=== PATIENT | male | born 1955 | race Caucasian/White ===

== ENCOUNTER 2022-04-26 06:23 | Day surgery (SDC) | payer OTHER, SELFPAY ==
[2022-04-26 06:46] VITALS: BMI 20.9
[2022-04-26 06:56] VITALS: BP 137/91; PULSE 74; RESP 18; TEMP 37.1; O2SAT 97
[2022-04-26] MEDS: SODIUM CHLORIDE 0.9 % (FLUSH) 10 ML SYRINGE IVF (07:05)
[2022-04-26] MEDS: LACTATED RINGERS 1000 ML 1,000 ML 100 ML IV (07:05)
--- NOTE | 2022-04-26 07:46 | SUR.PREOP ---
Home covid test negative
[2022-04-26] MEDS: CEFAZOLIN 1 GM inj IVP (09:57)
--- NOTE | 2022-04-26 09:57 | P.GSOP_ITS ---
Operative Note Date of procedure: 04/26/22 Pre-op diagnosis: Presumed grade 4 internal hemorrhoid Post-op diagnosis: Same Type of Procedure: 1 quadrant hemorrhoidectomy/excision anal canal polypoid lesion Indications: The patient is a 67-year-old male who has had tissue protruding from his anus for many years. This was previously seen in thought to be a prolapsed internal hemorrhoid. He was going to have surgery and then this was postponed. He came to see me 2 years later and was found to have what appeared to be prolapsed mucosa coming from the anus. Because of his history, and review of his prior chart it seems as though it has been stable and likely benign. Therefore plan was for excision in the OR. Because he had had some bleeding with this, it was felt he should also undergo repeat colonoscopy. Procedure Description: After discussing the risks and benefits of the procedure, the patient signed i nformed consent.? The operative site was identified and the patient was brought to the operating room and placed on the operating table in supine position.? A time-out was performed. The patient was placed in the left lateral decubitus position and then given sedation by anesthesia.? The colonoscopy was performed without incident. Please see the report in Provation. The patient was then placed in prone shannon-knife position. Care was taken to pad his pressure points. The buttocks were taped lateral for exposure and the area prepped and draped in the usual sterile fashion.? A second time-out was then performed. I began with a digital exam. There was tissue again protruding from the anal canal in the anterior midline/to the right of midline. There was no other masses noted on digital exam. Local anesthetic was injected in the skin and subcutaneous tissue around the area and a pudendal block was performed bilaterally. A Schmitz bivalve was then placed into the anus and the tissue was grasped. This was examined and appeared polypoid in nature. It was soft. It was pedunculated. I elected to remove the lesion. Using cautery, the polypoid lesion was removed with care to stay in the submucosal space. This was proximal to the sphincter in the anal canal and care was taken to avoid the sphincter complex. Once the specimen was removed, it was was sent to pathology. The mucosa was then oversewn with 3-0 chromic in a running, locking pattern. Hemostasis appeared excellent at the end of the procedure. ? The patient was then woken and transported to the recovery area in stable condition. ? The patient tolerated the procedure well. Findings: Pedunculated lesion in the anal canal, initially thought to be a grade 4 internal hemorrhoid, however may be a pedunculated polyp. Anesthesia: MAC Surgeon: Julia Chacno MD Estimated blood loss (mL): 10 Additional Specimen Information: Anal canal mass Condition: stable Disposition: same day
[2022-04-26] MEDS: LIDOCAINE 1% 5 ml (pf) 5 ML VIAL 30 ML SUBD (10:14)
[2022-04-26] MEDS: BUPIVACAINE LIPOSOME 133 MG/10 ML INJ INFILTRATI (10:35)
[2022-04-26] MEDS: BUPIVACAINE 0.5% 30 ML INJECTION (10:35)
[2022-04-26 10:49] VITALS: BP 111/81; PULSE 54; RESP 16; TEMP 36.2; O2SAT 99
--- NOTE | 2022-04-26 10:49 | W.ANESCHARGE ---
Anesthesia Charges Start Date/Time Anesthesia Start Date: 04/26/22 Anesthesia Start Time: 08:57 Stop Date/Time Anesthesia Stop Date: 04/26/22 Anesthesia Stop Time: 10:52 Summary Emergency: No
[2022-04-26 11:00] VITALS: BP 116/82; PULSE 57; RESP 16; O2SAT 99
[2022-04-26 11:15] VITALS: BP 118/84; PULSE 53; RESP 16; O2SAT 99
[2022-04-26 11:30] VITALS: BP 135/85; PULSE 57; RESP 16; O2SAT 99
[2022-04-26 11:45] VITALS: BP 129/95; PULSE 75; RESP 16; O2SAT 96
[2022-04-26] MEDS: HYDROCODONE-ACETAMIN 5-325 MG 1 TAB PO (11:47)
--- NOTE | 2022-04-26 12:55 | W.ANESCHARGE ---
Anesthesia Charges Start Date/Time Anesthesia Start Date: 04/26/22 Anesthesia Start Time: 08:57 Stop Date/Time Anesthesia Stop Date: 04/26/22 Anesthesia Stop Time: 10:52 Summary Emergency: No
== END 2022-04-26 12:45 | disposition home or self-care (01) ==
PROVIDERS: PCP Student in an Organized Health Care Education/Training Program; Visit Provider Surgery
PROC: (CPT 46922; principal; 2022-04-26 07:30)
PROC: 0DJD8ZZ Inspection of Lower Intestinal Tract, Via Natural or Artificial Opening Endoscopic (ICD-10-PCS; CPT 45378; 2022-04-26 07:30)
DX: K62.1 Rectal polyp (principal); K92.1 Melena
CPT/HCPCS: 46922; 45378; 00902; 88305; A9270; C9290; J0690; J2250; J2704; J3490; J7120

== ENCOUNTER 2022-07-26 12:46 | Outpatient (CLI) | payer OTHER, SELFPAY ==
--- NOTE | 2022-07-26 13:00 | CRLHL7_ITS ---
For Patients: As a result of the Century Cures Act, medical imaging exams and procedure reports are released immediately into your electronic medical record. You may view this report before your referring provider. If you have questions, please contact your health care provider. INDICATION: Hematuria. TECHNIQUE: CT abdomen and pelvis urogram without and with 78 cc Isovue 370 intravenous contrast. Contrast images were obtained in the delayed phases. COMPARISON: None. FINDINGS: KIDNEYS: The unenhanced images demonstrate no kidney or ureteral stones. The kidneys are normal in caliber and demonstrate normal excretion of IV contrast. No masses. The renal collecting systems and ureters are symmetrical, normal in caliber, and without evidence of mass or filling defect. URINARY BLADDER: Possible small nodular density adjacent to the right UVJ measuring 1 cm, see series 5, image 103. This, however, may represent artifact. The bladder wall is upper limits of normal measuring 2-3 millimeters. No bladder stones. Note is made that the beam hardening artifact from bilateral total hip arthroplasty hardware obscures visualization of the inferior bladder. OTHER: Postop changes to the anterior abdominal wall inferiorly related to prior hernia repair. Degenerative changes lumbar spine, particularly L5-S1. Mild atelectasis/scarring in both lower lobes. Normal liver. Mild thinning of the adrenal glands with low-density changes compatible with benign adenomas. Spleen normal. No pancreatic mass. No biliary obstruction. Gallbladder normal. Increased stool in the colon. No mechanical bowel obstruction. IMPRESSION: 1. Normal kidneys and renal collecting systems. 2. Limited evaluation of the inferior bladder. Possible ill-defined area of soft tissue density at the right posterior lateral bladder wall versus artifact. 3. Increased stool in the colon compatible with constipation. Please note that all CT scans at this facility use dose modulation, iterative reconstruction, and/or weight-based dosing when appropriate to reduce radiation dose to as low as reasonably achievable. Dictated by Ray Meza MD @ 07/27/2022 1:27:01 PM (Electronically Signed)
[2022-07-26 13:25] LABS: Creatinine* 0.6 mg/dL (0.5-1.5); Estimated Glomerular Filt Rate 106 ml/min
== END 2022-07-26 12:47 | disposition home or self-care (01) ==
PROVIDERS: PCP Student in an Organized Health Care Education/Training Program; Visit Provider Physician Assistant
DX: R31.9 Hematuria, unspecified (principal); K59.00 Constipation, unspecified
CPT/HCPCS: 36415; 74178; 82565; Q9967

== ENCOUNTER 2024-07-31 19:03 | Emergency (ER) | payer MEDICARE, BC, SELFPAY ==
--- OUTSIDE RECORDS SUMMARY | 2024-07-31 19:08 | XMS_ITS | Clinical Summary ---
Author Organization [facility] Address [address] [place] [address] Care Team Providers Care Back Up Worker Name Role Phone Unavailable Primary Care Provider Unavailabl e Source Comments Patient records contain information from all sites at [facility]. For routine questions regarding patient records, call [phone] during business hours, M-F 8:00 AM - 5:00 PM Central Time. Record requests for emergency care only can be directed to [phone] at any time.[facility] Allergies No known active allergies Medications cholecalciferol , vitamin D3, 10 mcg/5 mL (400 unit/5 mL) liquid Take 2,000 Units by mouth. Active Lactobac no.41/Bifidobac t no.7 (PROBIOTIC-10 ORAL) Take by mouth. Active PEDIATRIC MULTIVIT 211-IRON ORAL Take 1 tablet by mouth daily. Active saw palmetto 450 mg capsule Take 2 capsules by mouth 2 (two) times a day. Active Active Problems No known active problems Encounters Date Type Department Care Team Description 06/15/2024 Clinical Communication Department of Ophthalmology in [address] [phone] Geoff Escoto M.D. from Last 3 Months Family History Medical History Relation Name Comments Glaucoma Father's Sister Cataracts Sister Macular degeneration Neg Hx Relation Name Status Comments Father's Sister Sister Social History Tobacco Use Types Packs/Day Years Used Date Smoking Tobacco: Never Smokeless Tobacco: Never Tobacco Cessation:Counseling Given: Not Answered Alcohol Use Standard Drinks/Week Comments No 0 (1 standard drink = 0.6 oz pur e alcohol) Nutrition Answer Date Recorded Nutrition: EVOO Fat Source Unknown 05/27 Nutrition: Servings of Fruits/Vegetables per Day Not on file 05/27/2020 Dental Answer Date Recorded Dental: Regular Dentist Unknown 05/27/19 21 Sex and Gender Information Value Date Recorded Sex Assigned at Not on file 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 Gender Identity Not on file Sexual Orientation Not on file Plan of Treatment Health Maintenance Due Date Last Done Comments CT Colonography 1955 Cologuard 1955 Colonoscopy 1955 Colorectal Cancer Screening 1955 FIT 1955 Hepatitis C Screening 1955 Pneumococcal vaccine (50+ years) (1 of 1 - PCV) 2005 Zoster Vaccines (2 of 3) 07/22/2017 05/27/2017 DTaP,Tdap,and Td Vaccines (2 - Td or Tdap) 05/21/2022 05/21/2012 COVID-19 Vaccine (3 - 2023-2 5 season) 2023 07/23/2020, 07/02/2020 Influenza Vaccine (#1) 2024 Depression Screening (Annual PHQ-2) 04/08/2024 Fall Risk Screen (Annual) 04/08/2024 Fasting Glucose for Diabetes Screening 03/15/2025 03/15/2022 IPV Vaccines Aged Out No longer eligi ble based on patient's age to complete this topic Insurance [facility]
--- OUTSIDE RECORDS SUMMARY | 2024-07-31 19:08 | XMS_ITS | Encounter Summary ---
Author Organization [facility] Address [address] [place] [address] Care Team Providers Care Table Top Tile Setter Name Role Phone Unavailable Primary Care Provider Unavailabl e Encounter Details Date Type Department Care Team (Latest Contact Info) Description 06/15/2024 Clinical Communication Department of Ophthalmology in [place], [place] [address] [place] [phone] Geoff Escoto M.D. 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
--- OUTSIDE RECORDS SUMMARY | 2024-07-31 19:08 | XMS_ITS | Clinical Summary ---
Author Organization [facility] Address [address] [place] [id number] Care Team Providers Care Adjuster Name Role Phone Ann Hernandez DO Primary Care Provider Allergies No known active allergies Medications cholecalcifero l, vitamin D3, (VITAMIN D3 ORAL) Take 2,000 units by mouth once daily. Active Lactobacillus rhamnosus GG (PROBIOTIC DIGESTIVE CARE ORAL) Take by mouth. 12 billion CFU. 1 capsule every other day. Active finasteride 5 mg tablet Take 5 mg by mouth once daily in the evening. 01/06/20 24 Active Saw [place] Fruit 450 mg capsule Take 2 Capsules by mouth two times daily. 025 Discontin ued(*Jocelynn ent states no longer taking) pedi multivit 17/iron fumarate (FLINTSTONES PLUS IRON ORAL) Take 1 Tablet by mouth once daily. 025 Discontin ued(*Jocelynn ent states no longer taking) oxyCODONE-acet aminophen (PERCOCET) 5-325 mg per tabletIndicati ons:Bladder tumor Take 1 Tablet by mouth every 6 hours if needed for Pain. Max acetaminophen dose: 4000mg in 24 hrs. 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 05/27/2017 Overview (05/27/2017): On 03/13/17 EKG Non-recurrent bilateral ingu inal hernia without obstruction or gangrene 06/02/2012 Inguinal hernia 05/21/2012 Screen for colon cancer 05/14/2012 Overview (05/14/2012): Colonoscopy 05/2012 normal repeat in 10 years Sialadenitis 05/19/2008 Overview (05/19/2008): Causes airway obstruction in 1983 DJD (degenerative joint disease) of hip 05/19/19 Carpal tunnel syndrome 05/19/2008 Resolved Problems Problem Noted Date Diagnosed Date Resolved Date Atrial fibrillation, unspecified type 07/06/2024 07/06/2024 Encounters Date Type Department Care Team Description 07/09/2024 Telephone [facility] [address] [place] [address] Ann Hernandez DO Results 07/06/2024 9:00 AM CDT Office Visit [address] [place] [address] 07/06/2024 7:40 AM CDT Office Visit [facility] [address] [place] [address] Ann Hernandez DO Medicare ANNUAL (subsequent) Visit (69 year old ) 07/06/2024 Travel from Last 3 Months Immunizations Immunization Administration Dates Next Due COVID-19 vaccine ([employer] 30mcg/0.3mL) P FMAI 07/23/2020,07/02/2020 Td (Age >=7 Years) 03/08/2000 Tdap 05/21/2012 Zoster (Zostavax-ZVL, live) 05/27/2017 Family History Medical History Relation Name Comments Heart Disease Father CHF at 90 Stroke Father at 86 yo Stroke Mother at 86 from 2nd CVA Good Health Sister all 3 are healt hy Relation Name Status Comments Father Mother Sister Social History Tobacco Use Types Packs/Day Years Used Date Smoking Tobacco: Never Smokeless Tobacco: Never Tobacco Cessation:Counseling Given: Yes Alcohol Use Standard Drinks/Week Comments No 0 (1 standard drink = 0.6 oz pur e alcohol) PHQ-2 Answer Date Recorded PHQ-2 TOTAL SCORE 0 07/06/2024 Social Connections Answer Date Recorded Frequency of Communication with Friends and Fami ly 0 10/12/2021 Financial Resource Strain Answer Date R ecorded Difficulty of Paying Living Expenses 3 10/12/2021 Difficulty of Paying Living Expenses Not on file 10/12/2021 Food Insecurity Answer Date Recorded Worried About Running Out of Food in the Last Ye ar 1 10/12/2021 Transportation Needs Answer Date Record ed Lack of Transportation (Medical) 1 10/12/2021 Housing Stability Answer Date Recorded Unable to Pay for Housing in the Last Year 1 10/12/2021 Sex and Gender Information Value Date Recorded Sex Assigned at Not on file 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65 07/06/2024 7:45 AM CDT Plan of Treatment Upcoming Encounters Date Type Department Care Team (Late st Contact Info) Description 09/08/2024 7:15 AM CDT Orders Only [facility] [address] [place] [address] Lab, [facility] Maintenance Due Date Last Done Comments Pneumococcal series for age 50+ (1 of 2 - PCV) 1974 Zoster (shingles) series for age 50+ (2 of 3) 07/22/2017 05/27/2017 Tetanus booster 05/21/2022 05/21/2012, 05/09, 03/08/2000 COVID-19 vaccine series (3 - season) 2023 07/23/2020, 07/02/2020 Influenza Vaccine (Season Ended) 2024 BMI (ht and wt on same day) for age 18+ 07/06/2025 07/06/2024, 09/04/2022, 03/15/2022, Additional history exists Medicare Wellness for age 65+ 07/07/2025 07/06/2024, 03/15/2022 Depression screening for age 12+ 07/09/2025 07/09/2024, 07/06/2024, 05/31/2021, Additional history exists Lipids for age 45-75 07/06/2029 07/06/2024, 03/15/2022, 05/27/2017, Additional history exists RSV vaccine for adults or (1 - 1-dose 75+ series) 2030 Colonoscopy through age 75 04/26/203204/26 (Completed outside of [facility]), 05/14/2012, 05/14/2012, Additional history exists Tdap Completed 05/21/2012 Hepatitis C screening for ag e 18-79 Completed 07/06/2024 Procedures Procedure Name Priority Date/Time Associated Diagnosis Comments ANTI HCV Routine 07/06/2024 8:38 AM CDT Need for hepatitis C screening test LIPID PANEL W REFLEX MEASURED LDL Routine 07/06/2024 8:38 AM CDT Lipid screening BASIC METABOLIC PANEL Routine 07/06/2024 8:38 AM CDT 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 PATH TISSUE EXAM Routine 07/06/2024 8:21 AM CDT Skin lesion EXTENDED HOLTER Routine 07/06/2024 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 LDL-C is now calculated using the Dustin calculation, which is a validated novel method providing better accuracy than the Friedewald equation in the estimation of LDL-C. Claudio BLANCO et al. YOSELIN. 2013;310(19): 1823-8720 (http://education.Wanova/faq/HFG138) CHOL/HDLC RATIO 4.2 <5.0 (calc) [facility] NON HDL CHOLESTEROL 146(H) <130 mg/dL (calc) [facility] Comment: For patients with diabetes plus 1 major ASCVD risk factor, treating to a non-HDL-C goal of <100 mg/dL (LDL-C of <70 mg/dL) is considered a therapeutic option. Blood BLOOD SPECIMEN / Unknown 07/06/2024 8:38 AM CDT 07/06/2024 8:38 AM CDT us Adei Mary DO CHEMISTRY Final Result [employer] [facility] [address] [place] [address], [facility] [address] [place] [address] * ANTI HCV (07/06/2024 8:38 AM CDT) Pathologist [facility] HEPATITIS C ANTIBODY NON-REACTI VE NON-REACT [facility] Comment: HCV antibody was non-reactive. There is no laboratory evidence of HCV infection. In most cases, no further action is required. However, if recent HCV exposure is suspected, a test for HCV RNA (test code 90142) is suggested. For additional information please refer to http://education.Soil IQ/faq/SXG92u1 (This link is being provided for informational/ educational purposes only.) Blood BLOOD SPECIMEN / Unknown 07/06/2024 8:38 AM CDT 07/06/2024 8:38 AM CDT Ann Hernandez DO SEND OUTS Final Result [employer] [facility] [address] [place] [address], [facility] [address] [place] [address] * (ABNORMAL) BASIC METABOLIC PANEL (07/06/2024 8:38 AM CDT) Pathologist [facility] GLUCOSE 96 65 - 99 mg/dL [facility] Comment: Fasting reference interval UREA NITROGEN (BUN) 12 7 - 25 mg/dL [facility] CREATININE 0.66(L) 0.70 - 1.35 mg/dL [facility] EGFR 102 > OR = 60 mL/min/1.7 3m2 [facility] BUN/CREATININE RATIO 18 6 - 22 (calc) [facility] SODIUM 138 135 - 146 mmol/L [facility] POTASSIUM 4.3 3.5 - 5.3 mmol/L [facility] CHLORIDE 101 98 - 110 mmol/L [facility] CARBON DIOXIDE 26 20 - 32 mmol/L [facility] ELECTROLYTE BALANCE 11 7 - 17 mmol/L (calc) [facility] CALCIUM 9.1 8.6 - 10.3 mg/dL [facility] Blood BLOOD SPECIMEN / Unknown 07/06/2024 8:38 AM CDT 07/06/2024 8:38 AM CDT us Ann Hernandez DO CHEMISTRY Final Result [facility] [address] [place] [address], [facility] [address] [place] [address] * PATH TISSUE EXAM (07/06/2024 8:21 AM CDT) Case Report Pathology Report Case: [id number] Authorizing Provider: Ann Hernandez DO Collected: 07/06/2024 0821 Ordering Location: [facility] Received: 07/07/2024 1142 Clinic Pathologist: Ramana Bradley MD Specimen: Neck 07/09/2024 3:01 PM CDT [facility] ENTR[facility] LAB[facility] Final Diagnosis A) SKIN, NECK, BIOPSY: 1. Inflamed verrucous seborrheic keratosis 2. No evidence of malignancy 07/09/2024 3:01 PM CDT [facility] at 1501 CDT Clinical Information Skin lesion on the neck. 07/09/2024 3:01 PM CDT [facility] Gross Description A) Received in formalin, labeled with the patient's name and date of , is a 0.8 x 0.7 cm skin biopsy. There is a 0.7 x 0.4 x 0.3 cm verrucoid george lesion. The specimen is inked orange, trisected and entirely submitted in one cassette. [facility] 07/07/2024 07/09/2024 3:01 PM CDT [facility] Microscopic Description The final diagnosis is based on microscopic examination of appropriate sections of all specimens. A) There is a proliferation of basaloid epidermal cells with hyperkeratosis, no significant atypia, and no invasion. There is associated chronic inflammation. The presence of orange ink is confirmed on tissue sections. 07/09/2024 3:01 PM CDT [facility]-C ENTRAL LABORATORY Additional Information Interpreted at [facility], Central Laboratory - [address], [place] [address] 07/09/2024 3:01 PM CDT [facility] ENTRAL LAB[facility]ORY Other SPECIMEN FROM HEAD AND NECK STRUCTURE / Unknown Non-Blood / Unknown 07/06/2024 8:21 AM CDT 07/07/2024 11:42 AM CDT us Adei Shaqra DO PATHOLOGY/CYTOLOGY Final Result [facility] [address] [place] [address], [place] * EXTENDED HOLTER (07/06/2024) 07/06/2024 Narrative Alessia Panda MD - 07/31/2024 12:00 AM CDT Agree with Findings. Please see scan document for full report. Signed By Alessia Panda MD Procedure Note Alessia Panda MD - 07/31/2024 Agree with Findings. Please see scan document for full report. Signed By Alessia Panda MD us Ann Hernandez DO CARDIAC SERVICES ORD Final Resul t from Last 3 Months Insurance BLUE CROSS [employer]ALEN BLUE MR PB ONLY Advance Directives * Full Code (Latest Code Status on File) Date Activated Date Inactivated Comments 09/20/2022 12:23 PM 09/20/2022 6:18 PM Question Answer Comments Code Status Discussion: Unable to Assess Preferences, Provider to review later Care Teams Adjuster Relationship Specialty Start Date End Date Ann Hernandez DO [address] [place] [address] PCP - General Family Practice 04/05/22
--- OUTSIDE RECORDS SUMMARY | 2024-07-31 19:08 | XMS_ITS | Data Portability ---
Author Organization [facility], [facility] Address [address] [place] [address] Assessment No assessment recorded. Plan of Treatment Reminders Order Date Submit Date Provider Last Modified By Organization Details Last Modified Time Details Appointments ESTABLISH ED 10 2024 02:30P Parminder Marinelli MD Not available Not available Not available Lab urinalysi s, dipstick [email or web address] [place] [address], [facility] [facility], [address], [place], [address], 09/26/2023 11:53:47 urinalysi s, dipstick 2023 024 [facility], [address], [address], [place], [address], 06/25/2023 15:35:34 urinalysi s, dipstick 2022 023 [facility], [address], [address], [place], [address], 08/21/2022 14:31:04 Referral None recorded. Procedures bladder scan (PROC) 2023 024 [facility], [address], [address], [place], [address], 06/25/2023 15:35:29 Surgeries None recorded. Imaging None recorded. Medication Orders Bactrim DS 800 mg-160 mg tablet 2023 024 [email or web address] [id number], [address] [place], [place], [id number], 09/26/2023 11:50:27 finasteri de 5 mg tablet 2022 023 LILLI [facility] #[id number], [address] [place], [place], [id number], 01/03/2023 11:56:43 Patient TargetsNo targets recorded. Patient Instructions Encounter Date Encounter Id Patient Instructions Last Modified By Organization Details Last Modified Time 08/21/2022 [id number] will set up for TUR bladder tumor YECENIA discussed. [email or web address] Not available 08/21/2022 14:53:49 01/03/2023 [id number] will try him on finasteride and plan recheck PSA in 4-6 months. [email or web address] Not available 01/03/2023 11:55:37 06/25/2023 [id number] will start 40 da y bactrim and plan rtc 3 months for office cysto. continue on finasteride. [email or web address] Not available 06/25/2023 15:42:38 09/26/2023 [id number] doing well will need refill on finasteride in December. plan rtc 1 year with PSA. [email or web address] Not available 09/26/2023 12:03:46 Reason for Referral None Reported. Results Created Date Observation Date Name Description Value Unit Range Abnormal Flag Note LastModifiedBy Organization Detail LastModifiedTime 08/22/1908/21/2022 urina lysis , dipst ick pH-Status 7.0 Not Available _ryan [facility] [address], [place], [address], 08/20/2022 17:00:53 08/22/19 23 08/21/2022 urina lysis , dipst ick Blood-Status Trace Not Available [address], [place], [address], 08/20/2022 17:00:53 08/22/19 23 08/21/2022 urina lysis , dipst ick Leuko-Status Modera te Not Available [address], [place], [address], 08/20/2022 17:00:53 06/25/19 24 06/25/2023 bladd er scan (PROC ) Volume (in mL) 99ml Not Available [address], [place], [address], 06/25/2023 15:26:18 06/25/19 24 06/25/2023 urina lysis , dipst ick pH-Status 7.0 Not Available [address], [place], [address], 06/25/2023 15:26:32 06/25/19 24 06/25/2023 urina lysis , dipst ick Blood-Status Small Not Available [address], [place], [address], 06/25/2023 15:26:32 06/25/19 24 06/25/2023 urina lysis , dipst ick Leuko-Status Small Not Available [address], [place], [address], 06/25/2023 15:26:32 09/26/19 24 09/26/2023 urina lysis , dipst ick Sp [place]-Stat us 1.015 Not Available [address], [place], [address], 09/24/2023 16:56:10 09/26/19 24 09/26/2023 urina lysis , dipst ick pH-Status 6.0 Not Available [address], [place], [address], 09/24/2023 16:56:10 09/26/19 24 09/26/2023 urina lysis , dipst ick Protein-Stat us >=9.0 Not Available [address], [place], [address], 09/24/2023 16:56:10 09/26/19 24 09/26/2023 urina lysis , dipst ick Blood-Status Small Not Available [address], [place], [address], 09/24/2023 16:56:10 09/26/19 24 09/26/2023 urina lysis , dipst ick Leuko-Status Small Not Available [address], [place], [address], 09/24/2023 16:56:10 08/18/19 23 07/26/2022 CT, abdom en + pelvi s, w/wo contr ast No observ ation record ed. [email or web address] Not Available 2022 14:44:29 Result Notes None recorded. Problems Name Problem SNOMED Code Status Onset Date Resolution Date Notes Provider Name and Address Organization Details Recorded Time Prostate specific antigen above reference range 172261806 Active 2022 Agustín Marinelli MD [address] [facility],[address] [address], [place], [address], [place] [facility] 3 11:54:59 Chronic cystitis 55147626 Active 2023 Agustín Marinelli MD [address] [facility],[address], [place], [address], [facility] 4 15:42:38 Lower urinary tract symptoms due to benign prostatic hypertrophy 5696424475097 1 Active 2023 Agustín Marinelli MD [address] [facility],[address], [place], [address], [facility] 4 12:02:06 Problem Notes None recorded. Procedures Surgical History Date Name Laterality Status Provider Name and Address Organization Details Recorded Time 09/26/19 24 Bladder Scan completed Navjot Mane [facility] 09/24/2023 16:56:04 06/25/19 24 Bladder Scan completed Que Hwang [facility] 06/25/2023 15:35:31 08/22/19 23 Cystoscopy- male completed Agustín Marinelli MD [address] [place] [address],[address], [place], [address], [facility] 08/21/2022 14:53:10 08/22/19 23 Cipro post Cysto completed Que Hwang [facility] 08/21/2022 14:53:44 04/26/19 23 Colonoscopy completed Nohemy Espinosa [facility] 03/14/2023 16:20:26 total replacement of hip completed Agustín Marinelli MD [address] [place] [address],[address], [place], [address], [facility] 08/21/2022 14:28:48 Carpal tunnel surgery completed Agustín Marinelli MD [address] [place] [address],[address], [place], [address], [facility] 08/21/2022 14:28:55 hemorrhoidectomy completed Agustín Marinelli MD [address] [place] [address],[address], [place], [address], [facility] 08/21/2022 14:29:23 Imaging Results Imaging Date Name Status LastModified by Organiz ation Details LastModified Time 07/26/2022 CT, abdomen + pelvis, w/wo contrast completed [email or web address] Information not available 08/17/2022 14:44:29 Procedure Notes None recorded. Medical Equipment None Reported. Allergies No known drug allergies Medications Name Sig Start Date Stop Date Status Note LastModified by Organization Details LastModified Time clindamyc in HCl 300 mg capsule TAKE 1 CAPSULE FOUR TIMES DAILY UNTIL ALL TAKEN 08/21 completed Not Available Not Available Not Available hydrocodo ne 5 mg-acetam inophen 325 mg tablet TAKE 1 TO 2 TABLETS BY MOUTH EVERY 6 HOURS NEEDED FOR PAIN 08/21 completed Not Available Not Available Not Available ciproflox acin 500 mg tablet 08/21 completed Not Available Not Available Not Available sulfameth oxazole 800 mg-trimet hoprim 160 mg tablet TAKE 1 TABLET BY MOUTH EVERY 12 HOURS FOR 40 DAYS 09/25 completed Not Available Not Available Not Available oxycodone -acetamin ophen 5 mg-325 mg tablet 01/03 completed Not Available Not Available Not Available cephalexi n 500 mg capsule TAKE 1 CAPSULE BY MOUTH TWICE DAILY WITH FOOD, WATER, AND SUPPLEME NT WITH A PROBIOTI C. 01/03 completed Not Available Not Available Not Available finasteri de 5 mg tablet TAKE 1 TABLET BY MOUTH EVERY DAY IN THE EVENING 2024 active Pt will need appt for further refills; last seen 09-26-23 Not Available Not Available Not Available amoxicill in 875 mg-potass ium clavulana te 125 mg tablet TAKE 1 TABLET BY MOUTH TWICE DAILY 01/03 completed Not Available Not Available Not Available GaviLyte- G 236 gram-22.7 4 gram-6.74 gram-5.86 gram oral solution DRINK 2 LITERS THE DAY BEFORE COLONOSC OPY AND 2 LITERS 6 HOURS PRIOR TO APPOINTM ENT 08/21 completed Not Available Not Available Not Available Vitals Date Recorded Body height Body mass index (BMI) Body weight Provider Name and Address Organization Details Last Updated DateTime 08/21/2022 185.42 cm 21.1 kg/m2 00904.78 g Agustín Marinelli MD [address] [place] [address],[address], [address], [place] [facility] 08/21/2022 14:27:45 Date Recorded Body height Provider Name an d Address Organization Details Last Updated DateTime 01/03/2023 185.42 cm Agustín Marinelli MD [address] [place] [address],[address], [address] [place] [address] [facility] 01/03/2023 11:33:45 Date Recorded Body height Body mass index (BMI) Body weight Provider Name and Address Organization Details Last Updated DateTime 06/25/2023 185.42 cm 21.8 kg/m2 97482.74 g Agustín Marinelli MD [address] [place], [place] [address] [place] [address] 06/25/2023 15:22:44 Date Recorded Body height Body mass index (BMI) Body weight Provider Name and Address Organization Details Last Updated DateTime 09/26/2023 185.42 cm 22.4 kg/m2 69523.7 g Agustín Marinelli MD [address] [place] [address] [place] [address] 09/26/2023 11:50:21 Social History Question Answer Notes LastModified by Organizat ion Details LastModified Time Tobacco Smoking Status Never Smoker Agustín Marinelli MD [address] [place] [address], [address] [place] [address] 08/21/2022 14:28:31 What Is Your Level Of Alcohol Consumption? None Information not available 09/26/2023 What Is Your Level Of Caffeine Consumption? Moderate [email or web address] Information not available 08/21/2022 What Was The Date Of Your Most Recent Tobacco Screening? 09/26/2023 Information not available 09/26/2023 Sex: Unknown Functional Status None recorded. Mental Status None recorded. Family History Relationship Description Onset Age of this Age Resolved Age Notes LastModified by Organization Details LastModified Time Mother Family history of Hypertension [email or web address] Not available 14:28:19 Medical History Condition Response Other N High Blood Pressure N Kidney Stones N Depression N Lung Disease N GERD/Acid Reflux N Sexually Transmitted Infection N Cancer N High Cholesterol N Diabetes N Bleeding Disorder N Heart Disease N Immunizations Vaccine Type Date Status Note Provider Nam e and Address Organization Details Recorded Time COVID-19, mRNA, LNP-S, PF, 30 mcg/0.3 mL dose 07/02/2020 saranya pena [facility] 10/18/2022 15:53:44 COVID-19, mRNA, LNP-S, PF, 30 mcg/0.3 mL dose 07/23/2020 completed Vanyosi pena, [facility] 10/18/2022 15:53:45 Tdap 05/21/2012 completed Vanida Jatin becky, [facility] 10/18/2022 15:53:45 zoster live 05/27/2017 completed Vanyosi pena, [facility] 10/18/2022 15:53:45 Past Encounters Encounter ID Performer Location Encounter Start Date Encounter Closed Date Diagnosis/Indication Diagnosis SNOMED-CT Code Diagnosis ICD10 Code Diagnosis Note [id number] Agustín Marinelli MD [address] [place] [address] 08/21/2022 14:15:54 08/25/2022 10:01:28 Blood in urine 46561372 R31.9 Joey hematuria 36328951 5 R31.0 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 26203605 D41.4 Prostate s pecific antigen above reference range 746415285 R97.20 [id number] Agustín Marinelli MD [address] [place] [address] 01/03/2023 11:10:26 01/14/2023 17:24:10 Prostate specific antigen above reference range 776178397 R97.20 [id number] Agustín Marinelli MD [address] [place] [address] 06/25/2023 15:15:42 06/26/2023 09:26:33 Prostate specific antigen above reference range 084442008 R97.20 Chronic cystitis 6169873 2 N30.20 [id number] Agustín Marinelli MD [place] [address] [facility],[address] [place] [address] 09/26/2023 11:32:44 09/27/2023 14:49:08 Chronic cystitis 41201625 N30.20 Prostate s pecific antigen above reference range 800865082 R97.20 Lower urin ludivina tract symptoms due to benign prostatic hypertrophy 7529735443 9101 N40.1 Health Concerns Section Related Observation LastModified by Organization Detai ls LastModified Time None Recorded Concern Status LastModified by Organization Details LastModified Time None Recorded Advance Directives Directive None Recorded Payers Encounter Date Sequence Insurance Name Policy Number Policy George Covered Member ID George Member ID Guarantor Name 08/21/2022 1 [facility] - DUAL ELIGIBLE (MEDICARE REPLACEMENT/ ADVANTAGE - HMO) Harjinder Jeter [id number] Harjinder Jeter 01/03/2023 1 [facility] - DUAL ELIGIBLE (MEDICARE REPLACEMENT/ ADVANTAGE - HMO) Harjinder Jeter [id number] Harjinder Jeter 06/25/2023 1 [employer] [employer] [place] [id number] Harjinder Jeter [id number] Harjinder Jeter 09/26/2023 1 [employer] [employer] [place] [id number] Harjinder Jeter [id number] Harjinder Jeter Notes Date Note Type Note Provider Name and Address Organization Details Recorded Time 08/21/2022 text/html seeing for episodic gross painless hematuria. started about 2-3 years ago but no workup due to covid. had CT urogram done with no stones, but possible polyp in bladder. UA's often show RBC and WBC but cultures always negative. no smoking hx. UA today tr RBC mod leuks. PSA with PCP recently 4.6, was in the 3's last march. amily hx neg for CaProstate. 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 doing OK after that. had PSA done 2 days ago and up to 4.6, was 3.42 last March. no fam hx CaP. 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 PVR 99ml , UA tr RBC and leuks today. PSA was down to 2.74 last week from 4.6 last Fall. voiding OK, passed a small clot a few week back. Agustín Marinelli MD [address] [place] [address],[address], [place], [address], [facility] 06/25/2023 15:43:38 09/26/2023 text/html 68 YOM present f or chronic cystitis and elevated PSA. Finished course of sulfamethoxazole-t rimethoprim abx. taking daily finasteride and voiding OK. PVR 137ml today. UA small bld, small placido, pro 06/25/23 PSA 2.74 Agustín Marinelli MD [address] [facility],[address], [place], [address], [facility] 09/26/2023 12:05:50
--- NOTE | 2024-07-31 19:13 | ED.GENADULT ---
HPI - General Adult General Time Seen by Provider: 19:13 <Jess Giles MD - Last Filed: 07/31/24 21:57> Date Seen: 07/31/24 <Jess Giles MD - Last Filed: 07/31/24 21:57> Chief complaint: Extremity Pain/Injury, Lower <Jess Giles MD - Last Filed: 07/31/24 21:57> Stated complaint: Potential broken Right leg <Jess Giles MD - Last Filed: 07/31/24 21:57> Time Seen by Provider: 07/31/24 19:08 <Jess Giles MD - Last Filed: 07/31/24 21:57> Source: patient and RN notes reviewed <Jess Giles MD - Last Filed: 07/31/24 21:57> Mode of arrival: ambulatory <Jess Giles MD - Last Filed: 07/31/24 21:57> Limitations: no limitations <Jess Giles MD - Last Filed: 07/31/24 21:57> History of Present Illness HPI narrative: This 69-year-old male presented to the ER with the assistance of his neighbors with right leg pain. He was attempting to get in a skid dry kiln loader, believes he just did not grab correctly, he fell, believes his right leg got hung up or caught on the skid dry kiln loader, felt up [place] heard a pop in his thigh area, this is the area it hurts. He has had hip replacements. He denies any numbness or tingling. He did not fall on his head, there was no impact injury. There was no loss of consciousness, no neck or back pain, no difficulty breathing, no chest wall pain, no abdominal pain. He has no sense of numbness or tingling anywhere. His arms and his other left leg were unaffected. He is feeling pain from the right hip into the thigh area. He was able to call neighbors from his cell phone and they brought him to the ER. He cannot bear weight on his right leg due to upper thigh and hip pain. States he cannot lift this leg. <Jess Giles MD - Last Filed: 07/31/24 21:57> Related Data Home medications: Previous Rx's ?Medication ?Instructions ?Recorded amoxicillin 875 mg-potassium 1 tab PO BID #20 tabs 11/15/22 clavulanate 125 mg tablet <Jess Giles MD - Last Filed: 07/31/24 21:57> Allergies/adverse reactions: Allergies Allergy/AdvReac Type Severity Reaction Status Date / Time No Known Drug Allergies Allergy Verified 07/31/24 19:20 <Jess Giles MD - Last Filed: 07/31/24 21:57> Review of Systems Status of ROS: Reports: 6 or more systems reviewed and unremarkable except as noted in History and below <Jess Giles MD - Last Filed: 07/31/24 21:57> PFSH PFS Medical History: Medical History Cat bite ?W55.01XA - Bitten by cat, initial encounter (ICD-10) Bundle branch block, right ?I45.10 - Unspecified right bundle-branch block (ICD-10) Hernia, inguinal ?K40.90 - Unilateral inguinal hernia, without obstruction or gangrene, not specified as recurrent (ICD-10) Carpal tunnel syndrome ?G56.00 - Carpal tunnel syndrome, unspecified upper limb (ICD-10) Degenerative joint disease (DJD) of hip ?M16.9 - Osteoarthritis of hip, unspecified (ICD-10) Sialoadenitis, unspecified ?K11.20 - Sialoadenitis, unspecified (ICD-10) <Jess Giles MD - Last Filed: 07/31/24 21:57> Surgical History: Surgical History S/P total right hip arthroplasty ?Z96.641 - Presence of right artificial hip joint (ICD-10) Status post total hip replacement, left ?Z96.642 - Presence of left artificial hip joint (ICD-10) <Jess Giles MD - Last Filed: 07/31/24 21:57> Social History: Social History Smoking Status: Never smoker How often do you have a drink containing alcohol: never AUDIT-C Alcohol total score: 0 Non-prescribed substance use: denies use Caffeine: Yes (occaisionally) <Jess Giles MD - Last Filed: 07/31/24 21:57> Exam Const: Vital Signs, click to edit/add: Vital Signs - 24 hr 07/31/24 19:15 07/31/24 19:18 Temperature 98.9 F Pulse Rate [Right Pulse Oximeter] 71 Respiratory Rate 16 Blood Pressure [Ri ght Upper Arm] 148/88 H Pulse Oximetry 99 99 Oxygen Delivery Me thod Room Air This patient is alert, interactive, no apparent distress. Pupils equal round reactive, sclera clear, face atraumatic. Able to speak in complete sentences. No tenderness over spine. Neck is supple, no jugular venous distension, no adenopathy. Lungs are clear, good air entry, no wheezing or crackles, no tachypnea, no accessory muscle use. No traumatic change to chest wall. CV regular rate and rhythm, no murmur. Chest wall is nontender. Abdomen is soft, nontender, nondistended, no organomegaly or masses. Does not have pain when I palpate over his right greater trochanter, can gently internal external rotate his right leg on the bed does not seem to be significantly painful. He can straight leg raise his left leg off the bed, ask him to just gently try to do so with his right leg and causes him significant discomfort and effort is discontinued. He has no effusion or pain on palpation of his right knee joint, no pain on palpation down the tibia or fibula, no pain or effusion about the right ankle, foot is nontender, toes are nontender on the right side. Pulses are good, sensation distally is good. His right thigh does not seem to have any significant ecchymosis or swelling at this time, note no leg length discrepancy. Does not complain of pain when I compress his pelvis. <Jess Giles MD - Last Filed: 07/31/24 21:57> Vital Signs, click to edit/add: Vital Signs - 24 hr 04/25/25 19:15 07/31/24 19:18 Temperature 98.9 F Pulse Rate [Right Pulse Oximeter] 71 Respiratory Rate 16 Blood Pressure [Ri ght Upper Arm] 148/88 H Pulse Oximetry 99 99 Oxygen Delivery Me thod Room Air <Joe Regalado DO - Last Filed: 08/01/24 00:56> Vital Signs, click to edit/add: Vital Signs - 24 hr 07/31/24 19:15 07/31/24 19:18 Temperature 98.9 F Pulse Rate [Right Pulse Oximeter] 71 Respiratory Rate 16 Blood Pressure [Ri ght Upper Arm] 148/88 H Pulse Oximetry 99 99 Oxygen Delivery Me thod Room Air <Cheryl Moreland MD - Last Filed: 08/01/24 03:59> Documenting provider has reviewed patient's vital signs: yes <Jess Giles MD - Last Filed: 07/31/24 21:57> Course Course ED Course: Patient has significant discomfort when moving his right leg. I am wondering if there could be some type of muscle tear is I do not see significant swelling. We certainly will get x-ray imaging to rule out underlying fracture. Will look at his pelvis, right hip and femur. It is possible there could be an underlying femur fraction from a torsion type event. We will give him IV fentanyl and Zofran to prevent nausea, will be monitored on pulse oximetry. <Jess Giles MD - Last Filed: 07/31/24 21:57> Reevaluation(s) Time of Reevaluation #1: 21:05 <Jess Giles MD - Last Filed: 07/31/24 21:57> Reevaluation #1: Have reviewed with patient there is no evidence of fracture or dislocation. He has significant pain in mid to upper thigh when we attempt to have him actively lift his leg. When he is doing so, still feels like the quadriceps insertion along the knee is there. He had his hip replacements at [facility]. I will talk to our orthopedics on-call for further recommendations but I am wondering if there could be some hip flexor traumatic rupture. <Jess Giles MD - Last Filed: 07/31/24 21:57> Reevaluation #2: dr. Blayne Sanchez inherited care from outgoing evening provider. Patient with periprosthetic hip fracture, vital signs have been stable. Orthopedic team from our facility is recommending transfer. Was able to get acceptance for patient to transfer to the hospitalist at [facility]. Slight delay in transfer due to EMS availability overnight. Ultimately, patient transferred without complication. <Cheryl Moreland MD - Last Filed: 08/01/24 03:59> Consultations Consultation #1: Have reviewed with Karina Hyde from Orthopedics. She did look at these images, wonders if there is maybe a small crack coming off the lateral view from some of the free absorption area. She recommends that he follow up with Dr. Joe Ceja from [address] [place] [address]. He specializes in revisions. If patient can tolerate and is strong enough for walker, can discharge to home for outpatient follow-up. Have reviewed this with patient. He does not think that he is going to be able to tolerate walking, he states just the weight of the leg was extremely painful. Will have him get a dose of Tylenol, dose of oxycodone and see if he tolerates ambulation with a walker here. If not, he will need to transfer to an organization with [facility] as this is not something we can manage here. <Jess Giles MD - Last Filed: 07/31/24 21:57> Time: 21:12 <Jess Giles MD - Last Filed: 07/31/24 21:57> Vital Signs Vital signs: Initial Vital Signs Temperature 98.9 F 07/31/24 19:15 Temperature Source Temporal Artery Scan 07/31/24 19:15 Pulse Rate 71 07/31/24 19:15 Pulse Rhythm Regular 07/31/24 19:15 Pulse Strength 3+ Normal 07/31/24 19:15 Respiratory Rate 16 07/31/24 19:15 Blood Pressure 148/88 H 07/31/24 19:15 Blood Pressure Mean 108 H 07/31/24 19:15 Blood Pressure Position Supine 07/31/24 19:15 Pulse Oximetry 99 07/31/24 19:15 Oxygen Delivery Method Room Air 07/31/24 19:15 Vital Signs Temperature 98.9 F 07/31/24 19:15 Pulse Rate 71 07/31/24 19:15 Respiratory Rate 16 07/31/24 19:15 Blood Pressure 148/88 H 07/31/24 19:15 Pulse Oximetry 99 07/31/24 19:15 Oxygen Delivery Method Room Air 07/31/24 19:15 Temperature 98.9 F 07/31/24 19:15 Pulse Rate 71 07/31/24 19:15 Respiratory Rate 16 07/31/24 19:15 Blood Pressure 148/88 H 07/31/24 19:15 Pulse Oximetry 99 07/31/24 19:18 Oxygen Delivery Method Room Air 07/31/24 19:15 <Jess Giles MD - Last Filed: 07/31/24 21:57> Initial Vital Signs Temperature 98.9 F 07/31/24 19:15 Temperature Source Temporal Artery Scan 07/31/24 19:15 Pulse Rate 71 07/31/24 19:15 Pulse Rhythm Regular 07/31/24 19:15 Pulse Strength 3+ Normal 07/31/24 19:15 Respiratory Rate 16 07/31/24 19:15 Blood Pressure 148/88 H 07/31/24 19:15 Blood Pressure Mean 108 H 07/31/24 19:15 Blood Pressure Position Supine 07/31/24 19:15 Pulse Oximetry 99 07/31/24 19:15 Oxygen Delivery Method Room Air 07/31/24 19:15 Vital Signs Temperature 98.9 F 07/31/24 19:15 Pulse Rate 71 07/31/24 19:15 Respiratory Rate 16 07/31/24 19:15 Blood Pressure 148/88 H 07/31/24 19:15 Pulse Oximetry 99 07/31/24 19:15 Oxygen Delivery Method Room Air 07/31/24 19:15 Temperature 98.9 F 07/31/24 19:15 Pulse Rate 71 07/31/24 19:15 Respiratory Rate 16 07/31/24 19:15 Blood Pressure 148/88 H 07/31/24 19:15 Pulse Oximetry 99 07/31/24 19:18 Oxygen Delivery Method Room Air 07/31/24 19:15 <Joe Regalado DO - Last Filed: 08/01/24 00:56> Initial Vital Signs Temperature 98.9 F 07/31/24 19:15 Temperature Source Temporal Artery Scan 07/31/24 19:15 Pulse Rate 71 07/31/24 19:15 Pulse Rhythm Regular 07/31/24 19:15 Pulse Strength 3+ Normal 07/31/24 19:15 Respiratory Rate 16 07/31/24 19:15 Blood Pressure 148/88 H 07/31/24 19:15 Blood Pressure Mean 108 H 07/31/24 19:15 Blood Pressure Position Supine 07/31/24 19:15 Pulse Oximetry 99 07/31/24 19:15 Oxygen Delivery Method Room Air 07/31/24 19:15 Vital Signs Temperature 98.9 F 07/31/24 19:15 Pulse Rate 71 07/31/24 19:15 Respiratory Rate 16 07/31/24 19:15 Blood Pressure 148/88 H 07/31/24 19:15 Pulse Oximetry 99 07/31/24 19:15 Oxygen Delivery Method Room Air 07/31/24 19:15 Temperature 98.9 F 07/31/24 19:15 Pulse Rate 71 07/31/24 19:15 Respiratory Rate 16 07/31/24 19:15 Blood Pressure 148/88 H 07/31/24 19:15 Pulse Oximetry 99 07/31/24 19:18 Oxygen Delivery Method Room Air 07/31/24 19:15 <Cheryl Moreland MD - Last Filed: 08/01/24 03:59> Medications Administered Medications: Discontinued Medications Generic Name Dose Route Start Last Admin Trade Name Kendallq PRN Reason Stop Dose Admin Acetaminophen 1,000 mg 07/31/24 21:23 07/31/24 21:52 Acetaminophen 500 Mg Tablet PO 07/31/24 21:24 1,000 mg ONCE ONE Administration Fentanyl 50 mcg 07/31/24 19:18 07/31/24 19:28 Fentanyl 100 Mcg/2 Ml Inj IVP 07/31/24 19:19 50 mcg ONCE ONE Administration Ketorolac Tromethamine 15 mg 07/31/24 22:42 07/31/24 23:00 Ketorolac 15 Mg/Ml Inj IVP 07/31/24 22:43 15 mg ONCE ONE Administration Morphine Sulfate 2 mg 08/01/24 00:59 08/01/24 01:33 Morphine 2 Mg/Ml Inj IVP 2 mg Q2H PRN Administration Ondansetron HCl 4 mg 07/31/24 19:18 07/31/24 19:28 Ondansetron 2 Mg/Ml Inj IVP 07/31/24 19:19 4 mg ONCE ONE Administration Oxycodone HCl 5 mg 07/31/24 21:23 07/31/24 21:53 Oxycodone 5 Mg Tablet PO 07/31/24 21:24 5 mg ONCE ONE Administration <Jess Giles MD - Last Filed: 07/31/24 21:57> Discontinued Medications Generic Name Dose Route Start Last Admin Trade Name Freq PRN Reason Stop Dose Admin Acetaminophen 1,000 mg 07/31/24 21:23 07/31/24 21:52 Acetaminophen 500 Mg Tablet PO 07/31/24 21:24 1,000 mg ONCE ONE Administration Fentanyl 50 mcg 07/31/24 19:18 07/31/24 19:28 Fentanyl 100 Mcg/2 Ml Inj IVP 07/31/24 19:19 50 mcg ONCE ONE Administration Ketorolac Tromethamine 15 mg 07/31/24 22:42 07/31/24 23:00 Ketorolac 15 Mg/Ml Inj IVP 07/31/24 22:43 15 mg ONCE ONE Administration Morphine Sulfate 2 mg 08/01/24 00:59 08/01/24 01:33 Morphine 2 Mg/Ml Inj IVP 2 mg Q2H PRN Administration Ondansetron HCl 4 mg 07/31/24 19:18 07/31/24 19:28 Ondansetron 2 Mg/Ml Inj IVP 07/31/24 19:19 4 mg ONCE ONE Administration Oxycodone HCl 5 mg 07/31/24 21:23 07/31/24 21:53 Oxycodone 5 Mg Tablet PO 07/31/24 21:24 5 mg ONCE ONE Administration <Joe Regalado DO - Last Filed: 08/01/24 00:56> Discontinued Medications Generic Name Dose Route Start Last Admin Trade Name Freq PRN Reason Stop Dose Admin Acetaminophen 1,000 mg 07/31/24 21:23 07/31/24 21:52 Acetaminophen 500 Mg Tablet PO 07/31/24 21:24 1,000 mg ONCE ONE Administration Fentanyl 50 mcg 07/31/24 19:18 07/31/24 19:28 Fentanyl 100 Mcg/2 Ml Inj IVP 07/31/24 19:19 50 mcg ONCE ONE Administration Ketorolac Tromethamine 15 mg 07/31/24 22:42 07/31/24 23:00 Ketorolac 15 Mg/Ml Inj IVP 07/31/24 22:43 15 mg ONCE ONE Administration Morphine Sulfate 2 mg 08/01/24 00:59 08/01/24 01:33 Morphine 2 Mg/Ml Inj IVP 2 mg Q2H PRN Administration Ondansetron HCl 4 mg 07/31/24 19:18 07/31/24 19:28 Ondansetron 2 Mg/Ml Inj IVP 07/31/24 19:19 4 mg ONCE ONE Administration Oxycodone HCl 5 mg 07/31/24 21:23 07/31/24 21:53 Oxycodone 5 Mg Tablet PO 07/31/24 21:24 5 mg ONCE ONE Administration <Cheryl Moreland MD - Last Filed: 08/01/24 03:59> Medical Decision Making MDM Narrative Medical decision making narrative: Patient was signed out to me pending possible transfer. Patient had difficulties ambulating after the pain medication. He was hoping to stay in our hospital as he would prefer not to be transferred. I did speak to our on-call hospitalist and she recommends CT scan. These were ordered. CT scans returned showing a right hip arthroplasty with a nondisplaced periprosthetic fracture of the femoral component. I did speak to her or for providers and and they do recommend transfer still. Patient prefers [facility] as he he has been previously referred to Dr. Ceja for revision but his surgery was done at [facility]. <Joe Regalado DO - Last Filed: 08/01/24 00:56> Lab Data Labs: Lab Results 08/01/24 Range/Units 01:00 Urine Color Red A (Yellow) Urine Appearance Cloudy A (Clear) Urine pH 7.0 (5.0-8.5) Ur Specific [place] 1.015 (1.000-1.030) Urine Protein 3+ A (Negative) Urine Glucose (UA) Negative (Negative) Urine Ketones Trace A (Negative) Urine Blood 3+ A (Negative) Urine Nitrite Negative (Negative) Urine Bilirubin Negative (Negative) Urine Urobilinogen 0.2 (0.2-1.0) Ur Leukocyte Esterase 1+ A (Negative) Urine RBC 25-50 A (0-2) Urine WBC 10-25 A (0-5) Ur Squamous Epith Cells None (None-Few) Urine Bacteria None (None) <Jess Giles MD - Last Filed: 07/31/24 21:57> Lab Results 08/01/24 Range/Units 01:00 Urine Color Red A (Yellow) Urine Appearance Cloudy A (Clear) Urine pH 7.0 (5.0-8.5) Ur Specific [place] 1.015 (1.000-1.030) Urine Protein 3+ A (Negative) Urine Glucose (UA) Negative (Negative) Urine Ketones Trace A (Negative) Urine Blood 3+ A (Negative) Urine Nitrite Negative (Negative) Urine Bilirubin Negative (Negative) Urine Urobilinogen 0.2 (0.2-1.0) Ur Leukocyte Esterase 1+ A (Negative) Urine RBC 25-50 A (0-2) Urine WBC 10-25 A (0-5) Ur Squamous Epith Cells None (None-Few) Urine Bacteria None (None) <Joe Regalado DO - Last Filed: 08/01/24 00:56> Lab Results 08/01/24 Range/Units 01:00 Urine Color Red A (Yellow) Urine Appearance Cloudy A (Clear) Urine pH 7.0 (5.0-8.5) Ur Specific [place] 1.015 (1.000-1.030) Urine Protein 3+ A (Negative) Urine Glucose (UA) Negative (Negative) Urine Ketones Trace A (Negative) Urine Blood 3+ A (Negative) Urine Nitrite Negative (Negative) Urine Bilirubin Negative (Negative) Urine Urobilinogen 0.2 (0.2-1.0) Ur Leukocyte Esterase 1+ A (Negative) Urine RBC 25-50 A (0-2) Urine WBC 10-25 A (0-5) Ur Squamous Epith Cells None (None-Few) Urine Bacteria None (None) <Cheryl Moreland MD - Last Filed: 08/01/24 03:59> Imaging Data XR right hip: Attestation: I have reviewed the pertinent imaging results. <Jess Giles MD - Last Filed: 07/31/24 21:57> Radiologist's impression: Patient: BRENNAN CARD Facility:?[facility] Patient ID:?[id number] Site Patient ID:?[id number]. Site :?[id number] Study:?XRay-Hip Right 2V-07/31/2024 8:00:22 PM Ordering Physician:Shon Mercado Final Report: Indication: Fall, pain Technique: Pelvis and right hip 3 views. Comparison: None. Findings: Bones: Bilateral total hip arthroplasties. No acute fracture. Right total hip arthroplasty with osseous resorption of the acetabulum and lateral aspect of the proximal femur, and loosening along the medial aspect of the proximal stem. Heterotopic ossification surrounding the greater trochanters. Soft tissues: Sequela of prior hernia repair. Impression: No acute fracture or dislocation. Right total hip arthroplasty with osseous resorption of the acetabulum and lateral aspect of the proximal femur, and loosening along the medial aspect of the proximal stem. The stem tip appears well-seated. Dictated by Shira Tinajero MD @ 07/31/2024 8:42:59 PM (Electronic Signature) <Jess Giles MD - Last Filed: 07/31/24 21:57> XR right femur: Attestation: I have reviewed the pertinent imaging results. <Jess Giles MD - Last Filed: 07/31/24 21:57> Radiologist's impression: Patient: BRENNAN CARD Facility:?[facility] Patient ID:?[id number] Site Patient ID:?[id number]. Site :?[id number] Study:?XRay-Extremity Right FEMUR 2V-07/31/2024 7:59:35 PM Ordering Physician:Shon Mercado Final Report: Indication: Fall Technique: Right femur radiographs, two views Comparison: None. Findings: Bones: Right total hip arthroplasty with osseous resorption of the acetabulum and lateral aspect of the proximal femur, and loosening along the medial aspect of the proximal stem. No evidence of loosening at the stem tip. Heterotopic ossification at the greater trochanter. No acute fracture or dislocation. Soft tissues: Sequela of prior hernia repair. Impression: No acute fracture or dislocation. Right total hip arthroplasty with osseous resorption of the acetabulum and lateral aspect of the proximal fever with some loosening along the medial aspect of the proximal stem. The stem tip appears well-seated. Dictated by Shira Tinajero MD @ 07/31/2024 8:41:06 PM (Electronic Signature) <Jess Giles MD - Last Filed: 07/31/24 21:57> CT right hip: Attestation: I have reviewed the pertinent imaging results. <Joe Regalado DO - Last Filed: 08/01/24 00:56> Radiologist's impression: Right hip arthroplasty with nondisplaced periprosthetic fracture of the femoral component. Please note that all CT scans at this facility use dose modulation, iterative reconstruction, and/or weight-based dosing when appropriate to reduce radiation dose to as low as reasonably achievable. Dictated by Kian Johnson MD @ 08/01/2024 12:31:44 AM <Joe Regalado DO - Last Filed: 08/01/24 00:56> CT right femur: Attestation: I have reviewed the pertinent imaging results. <Joe Regalado DO - Last Filed: 08/01/24 00:56> Radiologist's impression: No acute fracture or dislocation. Right total hip arthroplasty with osseous resorption of the acetabulum and lateral aspect of the proximal fever with some loosening along the medial aspect of the proximal stem. The stem tip appears well-seated. Dictated by Shira Tinajero MD @ 07/31/2024 8:41:06 PM <Joe Regalado DO - Last Filed: 08/01/24 00:56> Discharge Plan Discharge Clinical Impression: Xi-prosthetic fracture around prosthetic hip <Jess Giles MD - Last Filed: 07/31/24 21:57> Patient Disposition: [facility] <Jess Giles MD - Last Filed: 07/31/24 21:57> Discharge Location: [facility] <Jess Giles MD - Last Filed: 07/31/24 21:57> Activity Level: No Restrictions <Jess Giles MD - Last Filed: 07/31/24 21:57> No Restrictions <Joe Regalado DO - Last Filed: 08/01/24 00:56> No Restrictions <Cheryl Moreland MD - Last Filed: 08/01/24 03:59> Discharge Diet: Regular <Jess Giles MD - Last Filed: 07/31/24 21:57> Regular <Joe Regalado DO - Last Filed: 08/01/24 00:56> Regular <Cheryl Moreland MD - Last Filed: 08/01/24 03:59> Prescriptions: No Action amoxicillin-pot clavulanate 875-125 mg tablet 1 tab PO BID Qty: 20 0RF <Jess Giles MD - Last Filed: 07/31/24 21:57> Stand Alone Forms: [facility] Info Instructions <Jess Giles MD - Last Filed: 07/31/24 21:57>
[2024-07-31 19:15] VITALS: BP 148/88; PULSE 71; RESP 16; TEMP 37.2; O2SAT 99; BMI 25.1
[2024-07-31 19:18] VITALS: O2SAT 99
--- NOTE | 2024-07-31 19:18 | CRLHL7_ITS ---
For Patients: As a result of the Cures Act, medical imaging exams and procedure reports are released immediately into your electronic medical record. You may view this report before your referring provider. If you have questions, please contact your health care provider. Indication: Fall Technique: Right femur radiographs, two views Comparison: None. Findings: Bones: Right total hip arthroplasty with osseous resorption of the acetabulum and lateral aspect of the proximal femur, and loosening along the medial aspect of the proximal stem. No evidence of loosening at the stem tip. Heterotopic ossification at the greater trochanter. No acute fracture or dislocation. Soft tissues: Sequela of prior hernia repair. Impression: No acute fracture or dislocation. Right total hip arthroplasty with osseous resorption of the acetabulum and lateral aspect of the proximal fever with some loosening along the medial aspect of the proximal stem. The stem tip appears well-seated. Dictated by Shira Tinajero MD @ 07/31/2024 8:41:06 PM (Electronically Signed)
--- NOTE | 2024-07-31 19:18 | CRLHL7_ITS ---
For Patients: As a result of the Century Cures Act, medical imaging exams and procedure reports are released immediately into your electronic medical record. You may view this report before your referring provider. If you have questions, please contact your health care provider. Indication: Fall, pain Technique: Pelvis and right hip 3 views. Comparison: None. Findings: Bones: Bilateral total hip arthroplasties. No acute fracture. Right total hip arthroplasty with osseous resorption of the acetabulum and lateral aspect of the proximal femur, and loosening along the medial aspect of the proximal stem. Heterotopic ossification surrounding the greater trochanters. Soft tissues: Sequela of prior hernia repair. Impression: No acute fracture or dislocation. Right total hip arthroplasty with osseous resorption of the acetabulum and lateral aspect of the proximal femur, and loosening along the medial aspect of the proximal stem. The stem tip appears well-seated. Dictated by Shira Tinajero MD @ 07/31/2024 8:42:59 PM (Electronically Signed)
[2024-07-31] MEDS: ONDANSETRON 2 MG/ML inj 4 MG IVP (19:28)
[2024-07-31] MEDS: fentaNYL 100 MCG/2 ML inj 50 MCG IVP (19:28)
--- OUTSIDE RECORDS SUMMARY | 2024-07-31 21:41 | XMS_ITS | Clinical Summary ---
Author Organization [facility] Address [address] [place] [id number] Care Team Providers Care Plaster Pattern Caster Name Role Phone Ann Hernandez DO Primary Care Provider [phone] Allergies No known active allergies Medications cholecalcifero l, vitamin D3, (VITAMIN D3 ORAL) Take 2,000 units by mouth once daily. Active Lactobacillus rhamnosus GG (PROBIOTIC DIGESTIVE CARE ORAL) Take by mouth. 12 billion CFU. 1 capsule every other day. Active finasteride 5 mg tablet Take 5 mg by mouth once daily in the evening. 01/06/20 24 Active Saw Drummond Fruit 450 mg capsule Take 2 Capsules [...] Type Department Care Team Description 07/09/2024 Telephone [facility] [address] [place] [address] Ann Hernandez DO Results 07/06/2024 9:00 AM CDT Office Visit [address] [place] [address] 07/06/2024 7:40 AM CDT Office Visit [facility] [address] [place] [address] Ann Hernandez DO Medicare ANNUAL (subsequent) Visit (69 year old ) 07/06/2024 Travel from Last 3 Months Immunizations Immunization Administration Dates Next Due COVID-19 vaccine (Intellio 30mcg/0.3mL) P FMAI 07/23/2020,07/02/2020 Td (Age >=7 [...] on file 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 Claudio BLANCO et al. YOSELIN. 2013;310(19): 1103-7849 (http://education.Spark/faq/CDP877) CHOL/HDLC RATIO 4.2 <5.0 (calc) [facility] [...] us Adei Mary DO CHEMISTRY Final Result [facility] [address] [place] [address], [facility] [address] [place] [address] * ANTI HCV (07/06/2024 8:38 AM CDT) Pathologist [facility] HEPATITIS C ANTIBODY NON-REACTI VE NON-REACT [place] Comment: HCV antibody was non-reactive. There is no laboratory evidence of HCV infection. In most cases, no further action is required. However, if recent HCV exposure is suspected, a test for HCV RNA (test code 09088) is suggested. For additional information please refer to http://education.Client24/faq/PGP79h3 (This link is being provided for informational/ educational purposes only.) Blood BLOOD SPECIMEN / Unknown 07/06/2024 8:38 AM CDT 07/06/2024 8:38 AM CDT Ann Hernandez DO SEND OUTS Final Result [facility] [address] [place] [address], [facility] [address] [place] [address] * (ABNORMAL) BASIC METABOLIC PANEL (07/06/2024 8:38 AM CDT) Pathologist [facility] GLUCOSE 96 65 - 99 mg/dL [facility] Comment: Fasting reference interval UREA NITROGEN (BUN) 12 7 - 25 mg/dL [facility] CREATININE 0.66(L) 0.70 - 1.35 mg/dL [facility] EGFR 102 > OR = 60 mL/min/1.7 3m2 [facility] BUN/CREATININE RATIO 18 6 - [...] Yoel CALCIUM 9.1 8.6 - 10.3 mg/dL [facility] Blood BLOOD SPECIMEN / Unknown 07/06/2024 8:38 AM CDT 07/06/2024 8:38 AM CDT us Ann Hernandez DO CHEMISTRY Final Result [facility] [address] [place] [address], [facility] [address] [place] [address] * PATH TISSUE EXAM (07/06/2024 8:21 AM CDT) Case Report Pathology Report Case: [id number] Authorizing Provider: Ann Hernandez DO Collected: 07/06/2024 0821 Ordering Location: [facility] Received: 07/07/2024 1142 Clinic Pathologist: Ramana Bradley MD Specimen: Neck 07/09/2024 3:01 PM CDT [facility] Final Diagnosis A) SKIN, NECK, BIOPSY: 1. Inflamed verrucous seborrheic keratosis 2. No evidence of malignancy 07/09/2024 3:01 PM CDT [facility] at 1501 CDT Clinical Information Skin lesion on the neck. 07/09/2024 3:01 PM CDT [facility] Gross Description A) Received in formalin, labeled with the patient's name and date of , is a 0.8 x 0.7 cm skin biopsy. There is a 0.7 x 0.4 x 0.3 cm verrucoid george lesion. The specimen is inked orange, trisected and entirely submitted in one cassette. [facility] 07/07/2024 07/09/2024 3:01 PM CDT [facility] Microscopic Description The final diagnosis is based on microscopic examination of appropriate sections of all specimens. A) There is a proliferation of basaloid epidermal cells with hyperkeratosis, no significant atypia, and no invasion. There is associated chronic inflammation. The presence of orange ink is confirmed on tissue sections. 07/09/2024 3:01 PM CDT [facility] ENTRAL LABORATORY Additional Information Interpreted at [facility], Central Laboratory - [address], [place] [address] 07/09/2024 3:01 PM CDT [facility] ENTRAL LAB[facility]ATORY Other SPECIMEN FROM HEAD AND NECK STRUCTURE / Unknown Non-Blood / Unknown 07/06/2024 8:21 AM CDT 07/07/2024 11:42 AM CDT us Adei Shaqra DO PATHOLOGY/CYTOLOGY Final Result [facility] [address] [place] [address], [place] * EXTENDED HOLTER (07/06/2024) 07/06/2024 Narrative [...] from Last 3 Months Insurance BLUE CROSS [employer] BLUE MR PB ONLY Advance Directives * Full Code (Latest Code Status on File) Date Activated Date Inactivated Comments 09/20/2022 12:23 PM 09/20/2022 6:18 PM Question Answer Comments Code Status Discussion: Unable to Assess Preferences, Provider to review later Care Teams Plaster Pattern Caster Relationship Specialty Start Date End Date Ann Hernandez DO [address] [place] [address] PCP - General Family Practice 04/05/22
--- OUTSIDE RECORDS SUMMARY | 2024-07-31 21:41 | XMS_ITS | Encounter Summary ---
Author Organization [facility] Address [address] [place] [address] Care Team Providers Care Golf Course Equipment Operator Name Role Phone Unavailable Primary Care Provider Unavailabl e Encounter Details Date Type Department Care Team (Latest Contact Info) Description 06/15/2024 Clinical Communication Department of Ophthalmology in [place], [place] [address] [place] [address] Geoff Escoto M.D. 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
--- OUTSIDE RECORDS SUMMARY | 2024-07-31 21:41 | XMS_ITS | Clinical Summary ---
Author Organization [facility] Address [address] [place] [address] Care Team Providers Care Corrugated Box Machine Operator Name Role Phone Unavailable Primary Care Provider Unavailabl e Source Comments Patient records contain information from all sites at [facility]. For routine questions regarding patient records, call [phone] during business hours, M-F 8:00 AM - 5:00 PM Central Time. Record requests for emergency care only can be directed to [phone] at any time.[facility] Allergies No known active allergies Medications cholecalciferol [...] 06/15/2024 Clinical Communication Department of Ophthalmology in [address] [phone] Geoff Escoto M.D. 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
[2024-07-31] MEDS: ACETAMINOPHEN 500 MG TABLET 1000 MG PO (21:52)
[2024-07-31] MEDS: OXYCODONE 5 MG TABLET PO (21:53)
--- NOTE | 2024-07-31 22:48 | CRLHL7_ITS ---
For Patients: As a result of the Century Cures Act, medical imaging exams and procedure reports are released immediately into your electronic medical record. You may view this report before your referring provider. If you have questions, please contact your health care provider. INDICATION: Trauma, fall. Right hip pain. TECHNIQUE: CT right hip without contrast. COMPARISON: Pelvis and right hip radiographs 07/31/2024. FINDINGS: Right hip arthroplasty. Hardware appears intact. Osseous resorption along the acetabular component and lateral aspect of the proximal femoral component. Slight lucency along the medial aspect of the proximal femoral component. Nondisplaced periprosthetic fracture of the femoral component. Left hip arthroplasty. Hardware appears intact. Mild osseous resorption along the acetabular component. Visualized small and large bowel loops are normal in caliber. Prior hernia repair. Scattered atherosclerotic calcifications. IMPRESSION: Right hip arthroplasty with nondisplaced periprosthetic fracture of the femoral component. Please note that all CT scans at this facility use dose modulation, iterative reconstruction, and/or weight-based dosing when appropriate to reduce radiation dose to as low as reasonably achievable. Dictated by Kian Johnson MD @ 08/01/2024 12:31:44 AM (Electronically Signed)
--- NOTE | 2024-07-31 22:48 | CRLHL7_ITS ---
For Patients: As a result of the Century Cures Act, medical imaging exams and procedure reports are released immediately into your electronic medical record. You may view this report before your referring provider. If you have questions, please contact your health care provider. INDICATION: Trauma, fall. Right hip pain. TECHNIQUE: CT right femur without contrast. COMPARISON: Right femur radiographs 07/31/2024. FINDINGS: Right hip arthroplasty. Hardware appears intact. Osseous resorption along the acetabular component and lateral aspect of the proximal femoral component. Slight lucency along the medial aspect of the proximal femoral component. Nondisplaced periprosthetic fracture of the femoral component. Bone alignment is normal. Scattered atherosclerotic calcifications. IMPRESSION: Right hip arthroplasty with nondisplaced periprosthetic fracture of the femoral component. Please note that all CT scans at this facility use dose modulation, iterative reconstruction, and/or weight-based dosing when appropriate to reduce radiation dose to as low as reasonably achievable. Dictated by Kian Johnson MD @ 08/01/2024 12:35:09 AM (Electronically Signed)
[2024-07-31] MEDS: KETOROLAC 15 MG/ML inj IVP (23:00)
[2024-08-01 01:05] LABS: Appearance Urine Cloudy (Clear); Bilirubin Urine Negative (Negative); Blood Urine 3+ (Negative); Color Urine Red (Yellow); Glucose Urine Negative (Negative); Ketones Urine Trace (Negative); Leukocyte Esterase Urine 1+ (Negative); Nitrite Urine Negative (Negative); Protein Urine 3+ (Negative); Specific Gravity Urine 1.015 (1.000-1.030); Urobilinogen Urine 0.2 (0.2-1.0)
[2024-08-01 01:26] LABS: RBC Urine 25-50 (0-2)
[2024-08-01] MEDS: MORPHINE 2 MG/ML inj IVP (01:33)
== END 2024-08-01 03:26 | disposition short-term general hospital (02) ==
PROVIDERS: Student in an Organized Health Care Education/Training Program; Emergency Provider Family Medicine; PCP Student in an Organized Health Care Education/Training Program
DX: M97.01XA Periprosthetic fracture around internal prosthetic right hip joint, initial encounter (principal); V85.4XXA Person injured while boarding or alighting from special construction vehicle, initial encounter
CPT/HCPCS: 73502; 73552; 73700; 81001; 87086; 94761; 96374; 96375; 99285; A9270; J1885; J2270; J2405; J3010

== ENCOUNTER 2024-08-01 03:10 | Outpatient (CLI) | payer MEDICARE, BC, SELFPAY | END 2024-08-01 03:11 | disposition home or self-care (01) | LOC: AMB 08-03 09:48 | PROVIDERS: PCP Student in an Organized Health Care Education/Training Program; Visit Provider Family Medicine | DX: M97.8XXA Periprosthetic fracture around other internal prosthetic joint, initial encounter (principal) | CPT/HCPCS: A0425; A0427 ==